=== PATIENT | female | born 1940 | race Caucasian/White ===

== ENCOUNTER 2017-09-27 07:12 | Day surgery (SDC) | payer MEDICARE ==
[~2017-09-27 07:12] MED LIST: Acetaminophen TAB* 325 MG PO PRN; Buffered Lidocaine 0.9% SYRIN* 5 ML/SYR SYRINGE INTRADERM ONE
[2017-09-27] MEDS ORDERED: fentaNYL* 50 MCG/ML 2 ML VIAL (100 MCG VIAL) ONE (09:03)
[2017-09-27] MEDS ORDERED: Midazolam* 1 MG/ML 2 ML VIAL (2 MG) ONE (09:04)
[2017-09-27 10:31] VITALS: BP 105/59
--- NOTE | 2017-09-27 11:00 | OP ---
DATE OF OPERATION: 09/27/2017 - [facility] DATE OF : 1940. SURGEON: Rakan Hancock M.D. PREOPERATIVE DIAGNOSIS: Cataract right eye. POSTOPERATIVE DIAGNOSIS: Cataract right eye. OPERATIVE PROCEDURE: Extracapsular cataract extraction with intraocular lens implant right eye. DESCRIPTION OF PROCEDURE: The patient was brought to the operating room after being given 1/2% Alcaine with epinephrine drops in the preoperative area. The eye was prepped and draped in the usual sterile fashion. Sterile drape and eyelid speculum were placed. Again, topical 1/2% Alcaine with epinephrine was given. A paracentesis incision was made at the 9 o'clock position with the No.75 blade. Clear cornea incision 2.2 x 2.2-mm was created at the 12 o'clock position starting at the anterior limbus using the 2.2-mm keratome. The anterior chamber was irrigated with 0.4 mL of 1% non-preservative intracameral lidocaine and filled with DisCoVisc. A capsulorrhexis was completed using the cystotome and the Utrata forceps. Hydrodissection was performed with balanced salt solution. The lens nucleus was removed with the Phacoemulsification handpiece without incident. Cortex was removed with the irrigation-aspiration handpiece. The capsular bag was re-inflated using DisCoVisc and an [id number] implant was inserted with the shooter. The irrigation-aspiration handpiece was used to remove all residual DisCoVisc. The eye was refilled with balanced salt solution and the wound checked and found to be watertight. Topical Maxitrol drops were given. [id number]/[facility] #: [id number] [facility]
[2017-09-27] MEDS ORDERED: Lidocaine 1% MPF* 2 ML VIAL ONE (11:03)
[2017-09-27] MEDS ORDERED: Phenylephrine 2.5% OPTH.SOL* 2 ML BTL ONE (11:03)
[2017-09-27] MEDS ORDERED: acetaZOLAMIDE TAB* 250 MG ONE (11:03)
[2017-09-27] MEDS ORDERED: Cyclopentolate 1% OPTH.SOL* 2 ML BTL ONE (11:03)
[2017-09-27] MEDS ORDERED: Neomycin/Polymy/Dex OPTH.SUSP* MAXITROL 0.1% 5 ML ONE (11:03)
[2017-09-27] MEDS ORDERED: Ketorolac 0.5% OPHTH (NF) 0.5 % 5 ML BTL ONE (11:03)
[2017-09-27] MEDS ORDERED: Proparacaine 0.5% OPHTH.SOL* 15 ML BTL ONE (11:03)
[2017-09-27] MEDS ORDERED: Povidone Iodine 5% OPTH* 30 ML BTL ONE (11:03)
[2017-09-27] MEDS ORDERED: Lidocaine 2% EPI 1:200000 MPF* 20 ML VIAL ONE (11:03)
== END 2017-09-27 10:02 | disposition home or self-care (01) ==
LOC: OREAST 07:12
PROVIDERS: ATTEND Specialist
DX: H25.811 Combined forms of age-related cataract, right eye (principal); H53.021 Refractive amblyopia, right eye
CPT/HCPCS: A9270-GY; J2250; J3010; V2632

== ENCOUNTER 2017-10-04 06:26 | Day surgery (SDC) | payer MEDICARE ==
[2017-10-04] MEDS ORDERED: Midazolam* 1 MG/ML 2 ML VIAL (2 MG) ONE ×2 (07:10→07:27)
[2017-10-04] MEDS ORDERED: acetaZOLAMIDE TAB* 250 MG ONE (07:12)
[2017-10-04] MEDS ORDERED: Lidocaine 1% MPF* 2 ML VIAL ONE (07:12)
[2017-10-04] MEDS ORDERED: Cyclopentolate 1% OPTH.SOL* 2 ML BTL ONE (07:12)
[2017-10-04] MEDS ORDERED: Ketorolac 0.5% OPHTH (NF) 0.5 % 5 ML BTL ONE (07:13)
[2017-10-04] MEDS ORDERED: Phenylephrine 2.5% OPTH.SOL* 2 ML BTL ONE (07:13)
[2017-10-04] MEDS ORDERED: Lidocaine 2% EPI 1:200000 MPF* 20 ML VIAL ONE (07:13)
[2017-10-04] MEDS ORDERED: Povidone Iodine 5% OPTH* 30 ML BTL ONE (07:13)
[2017-10-04] MEDS ORDERED: Proparacaine 0.5% OPHTH.SOL* 15 ML BTL ONE (07:13)
[2017-10-04] MEDS ORDERED: Neomycin/Polymy/Dex OPTH.SUSP* MAXITROL 0.1% 5 ML ONE (07:13)
[2017-10-04 07:57] VITALS: BP 104/73
--- NOTE | 2017-10-04 12:19 | OP ---
DATE OF OPERATION: 10/04/2017 - [facility] DATE OF : 1940. SURGEON: Rakan Hancock M.D. PREOPERATIVE DIAGNOSIS: Cataract left eye. POSTOPERATIVE DIAGNOSIS: Cataract left eye. OPERATIVE PROCEDURE: Extracapsular cataract extraction with intraocular lens implant left eye. DESCRIPTION OF PROCEDURE: The patient was brought to the operating room after being given 1/2% Alcaine with epinephrine drops in the preoperative area. The eye was prepped and draped in the usual sterile fashion. Sterile drape and eyelid speculum were placed. Again, topical 1/2% Alcaine with epinephrine was given. A paracentesis incision was made at the 3 o'clock position with the No.75 blade. Clear cornea incision 2.2 x 2.2-mm was created at the 6 o'clock position starting at the anterior limbus using the 2.2-mm keratome. The anterior chamber was irrigated with 0.4 mL of 1% non-preservative intracameral lidocaine and filled with DisCoVisc. A capsulorrhexis was completed using the cystotome and the Utrata forceps. Hydrodissection was performed with balanced salt solution. The lens nucleus was removed with the Phacoemulsification handpiece without incident. Cortex was removed with the irrigation-aspiration handpiece. The capsular bag was re-inflated using DisCoVisc and an [id number] 26.5 implant was inserted with the shooter. The irrigation-aspiration handpiece was used to remove all residual DisCoVisc. The eye was refilled with balanced salt solution and the wound checked and found to be watertight. Topical Maxitrol drops were given. [id number]/[facility] #: [id number] [facility]
== END 2017-10-04 07:57 | disposition home or self-care (01) ==
LOC: OREAST 06:26
PROVIDERS: ATTEND Specialist
DX: H25.812 Combined forms of age-related cataract, left eye (principal); H53.021 Refractive amblyopia, right eye
CPT/HCPCS: A9270-GY; J2250; V2632

== ENCOUNTER 2018-07-05 10:49 | Inpatient (IN) | payer MEDICARE ==
--- NOTE | 2018-07-01 23:20 | HP ---
AMENDED REPORT NOW INCLUDES DESIGNATED COSIGNER HISTORY AND PHYSICAL: DATE OF ADMISSION: 07/05/18 DATE OF OFFICE VISIT: 06/22/18 ATTENDING PHYSICIAN: Pam Yen MD * (DICTATED BY ZAINAB GIBBS) REASON FOR HOSPITALIZATION: Right knee osteoarthritis. HISTORY OF PRESENT ILLNESS: The patient is a 77-year-old female who has a longstanding history of right knee pain due to end-stage right knee osteoarthritis. She has had mechanical symptoms giving her 8/10 pain. She has failed conservative treatment and has elected to proceed with surgery. She is scheduled to undergo right knee total arthroplasty on 07/05/[address] Yen. PAST MEDICAL HISTORY: 1. Osteoarthritis. 2. Depression. PAST SURGICAL HISTORY: 1. LASIK surgery for the eye. 2. Tonsil and adenoidectomy. 3. Nasal reconstruction. 4. Bladder lifts. MEDICATION: Omeprazole 40 mg. ALLERGIES: No known drug allergies. FAMILY HISTORY: Sister with cancer. SOCIAL HISTORY: The patient lives with her spouse. She is not working. No tobacco, alcohol, recreational drug use. REVIEW OF SYSTEMS: A complete 14-point review of systems was obtained other than HPI was negative and noncontributory. PHYSICAL EXAMINATION GENERAL: Well-developed, well-nourished 77-year-old female, in no acute distress. Alert and oriented x3. Appropriate mood and affect. HEENT: Head is normocephalic, atraumatic. NECK: Supple with no palpable lymph nodes. LUNGS: Clear to auscultation bilaterally. No wheezes, rales, or rhonchi. CARDIAC: Regular rate and rhythm. S1, S2. No murmurs, rubs, or gallops. ABDOMEN: Soft, tender, nondistended. Positive bowel sounds throughout. MUSCULOSKELETAL: Right lower extremity skin is intact. No abrasions or open wounds. Moderate effusion at the knee joint. There is 10 degrees of valgus deformity, 5 to 130 degrees of flexion at the knee. No varus or valgus instability. Slight tenderness along the medial joint line. Distally no edema or varicosities. No hyperreflexia. No palpable masses or lymph nodes. She has 5/5 equal dorsiflexion and plantar flexion strength. Full sensation to light touch to all nerve distributions and 2+ palpable dorsalis pedis pulse. SKIN: Intact without rashes or lesions. DIAGNOSTIC STUDIES/LAB DATA: Studies; radiographs from 06/01/18 showed severe arthritis with valgus deformity. There is bone on bone contact in the patellofemoral joint. There is newly bone on bone contact in the lateral compartment as well. There is tricompartment joint space narrowing, osteophyte formation and subchondral sclerosis. ASSESSMENT: Right knee osteoarthritis. PLAN: The patient is scheduled to undergo right total knee arthroplasty on by Dr. Yen. She will follow up in the office 10 to 14 days postoperatively. ZAINAB GIBBS [id number]/[facility] #: [id number] MTDEle
[~2018-07-05 10:49] MED LIST changes: -Acetaminophen TAB* 325 MG PO PRN; +Dexamethasone IV* 4 MG/ML 1 ML (4 MG) IV SLOW PU ONE; +Tranexamic Acid 1,000 MG in NS 0.9% 50 ML* (outpatient use) IV SCH
--- OUTSIDE RECORDS SUMMARY | 2018-07-05 10:53 | XMS REPORT ---
:1940 External Reference #:[id number] Author Organization [facility] Address [address] [place] [address] [place] [address] Phone [phone] Care Team Providers Name Role Phone Varghese Bailey MD Primary Care Physician Unavailable Payers Type Date Identification Numbers Payment Provider Subscriber Health Maintenance Effective: Policy Number: [facility] Health Plan Kay Tolbert Jae Organization (O) 04/11/2018 [id number] o PayID: [id number] Attn [facility] Claims Dept [address] [place] [address] Medigap Part B Effective: 07/27/2015 Policy Number: Medicare Kay Rossr [id number] Expires: 05/31/2018 PayID: [id number] [address] [place] [address] Problems Date Description Provider Status Onset: 06/03/2011 Migraine Haseeb Garcia M.D. Active Onset: 06/03/2011 Gastroesophageal reflux disease Haseeb Garcia M.D. Active Onset: 06/03/2011 Pure hypercholesterolemia Haseeb Garcia M.D. Active Onset: 06/01/2018 Localized, primary osteoarthritis Pam Yen M.D. Active Family History Date Family Member(s) Problem(s) Comments General Cancer Father due to CHF () Father due to age 89 () - ? 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 Allergies, Adverse Reactions, Alerts Date Description Reaction Status Severity Comments 03/23/2010 NKDA active Medications Medication Date Status Form Strength Qnty SIG Indications Ordering Provider Omeprazole 03/[address] 40mg Take 1 Capsule By Mouth One Time Daily Famotidine 12/31 Hx Tablets 20mg 1 tablet hs prn - 05/31 Omeprazole 06/[address] 20mg 30cap Take 1 . s Capsule By Radha - Mouth One M.D. 06/14 Time Prilosec 11/[address] 20mg 90cap 1 po qd . Katerine Hernandez M.D. 06/06 Zegerid OTC 06/03 Hx Capsules 20-1100mg 1 capsule . in am Katerine Garcia M.D. 11/14 Famotidine 06/03 Hx Tablets 20mg 60tab 1 tablet Haseeb E. /2010 s hs prn Katerine Garcia M.D. 06/06 Tums 06/03 Hx Chewtabs 500mg 1 chewtab Haseeb EDenia on some Radha - evenings M.D. 06/06 Compro 06/03 Hx Suppository 25mg 1 Haseeb E. suppositor Radha - y prn when M.D. 05/03 Propranolol HCL 06/03 Hx Tablets 10mg 90tab 1 po qd Haseeb E. Katerine Hernandez M.D. 05/03 Prochlorperazine 06/03 Hx Suppository 25mg 6unit insert 1 Haseeb E. s suppositor Radha - y rectally M.D. 05/06 every hours as needed for nausea and vomiting Propranolol HCL 03/23 Hx Tablets 40mg 30tab 1 po qd Haseeb E s Radha, - M.D. 06/[address] 40mg 30cap 1 po qd Unknown / s - 06/03 Zomig Hx Tablets 5mg 20tab Take 09/12 Haseeb E. s Tablet as Radha, - Needed For M.D. 06/06 Vagifem Hx Tablets 10mcg by way of vagina - twice a 05/31 week (with /2018 applicator ) Medications Administered in Office Medication Date Status Form Strength Qnty SIG Indications Ordering Provider Influenza Administered Injection Unknown Virus Vaccine 014 Immunizations CPT Code Status Date Vaccine Lot # [id number] Given 07/27/2015 Influenza Virus Vaccine, Quadrivalent, Split, [id number] Preservative Free [id number] Given 06/06/2013 Flu Vaccine Split Virus Preservative Free For [id number] Indiv 3Yr Older [id number] Given 06/05/2012 Fluzone Vaccine [id number] Given 09/16/2010 Influenza Virus 3Yrs & Over [id number] 14144 Given 09/11/2007 Pneumonia Vaccine 11998 Given 09/11/2006 Tetanus And Diptheria (Td) For Adult Use Preservative Free [id number] Given 09/12/2005 Zoster (Zostavax) Vital Signs Date Vital Result Comment 06/22/2018 Height 68 inches 5'8" Weight 206.00 lb BP Systolic 107 mmHg BP Diastolic 64 mmHg Respiratory Rate 16 /min Pain Level 4 BMI (Body Mass Index) 31.3 kg/m2 06/01/2018 Height 68 inches 5'8" Weight 205.00 lb Heart Rate 92 /min BP Systolic 130 mmHg BP Diastolic 70 mmHg BMI (Body Mass Index) 31.2 kg/m2 05/07/2018 Height 68 inches 5'8" Weight 200.00 lb Heart Rate 78 /min BP Systolic 111 mmHg BP Diastolic 73 mmHg Respiratory Rate 18 /min Body Temperature 98.7 F O2 % BldC Oximetry 98 % BMI (Body Mass Index) 30.4 kg/m2 07/27/2015 Height 68.5 inches 5'8.50" Weight 209.00 lb Heart Rate 74 /min BP Systolic Sitting 110 mmHg BP Diastolic Sitting 78 mmHg Body Temperature 98.1 F Pain Level 4 R hip O2 % BldC Oximetry 98 % BMI (Body Mass Index) 31.3 kg/m2 04/15/2015 Height 68.5 inches 5'8.50" Weight 206.25 lb Heart Rate 88 /min BP Systolic Sitting 108 mmHg BP Diastolic Sitting 64 mmHg Pain Level 3 O2 % BldC Oximetry 95 % BMI (Body Mass Index) 30.9 kg/m2 06/06/2013 Height 68.5 inches 5'8.50" Weight 209.00 lb Heart Rate 74 /min BP Systolic Sitting 108 mmHg BP Diastolic Sitting 76 mmHg BMI (Body Mass Index) 31.3 kg/m2 06/05/2012 Height 68.5 inches 5'8.50" Weight 227.00 lb Heart Rate 68 /min BP Systolic Sitting 110 mmHg BP Diastolic Sitting 74 mmHg BMI (Body Mass Index) 34.0 kg/m2 05/03/2012 Height 68.5 inches 5'8.50" Weight 227.38 lb Heart Rate 64 /min BP Systolic Sitting 112 mmHg BP Diastolic Sitting 70 mmHg BMI (Body Mass Index) 34.1 kg/m2 06/03/2011 Height 68.5 inches 5'8.50" Weight 230.50 lb Heart Rate 76 /min BP Systolic Sitting 114 mmHg BP Diastolic Sitting 68 mmHg BMI (Body Mass Index) 34.5 kg/m2 03/23/2010 Height 68 inches 5'8" Weight 244.00 lb Heart Rate 106 /min BP Systolic Sitting 116 mmHg BP Diastolic Sitting 72 mmHg BMI (Body Mass Index) 37.1 kg/m2 Results Test Date Test Result H/L Range Note Surgical Pathology 12/23/2013 S RUN DATE: <SEE NOTE> Lipid Profile 05/30/2013 Triglycerides 60 mg/dL 40-200 (Trig/Chol/HDL) Cholesterol 273 mg/dL High Less than 200 HDL Cholesterol 78 mg/dL High 40-60 2 Cholesterol/HDL Ratio 3.5 Average 1-4.44 LDL Cholesterol 183.0 High Less Than 100 3 Vitamin D, 25 Hydroxy 05/07/2012 25-Hydroxy Vitamin D2 <4.0 ng/mL () 25-Hydroxy Vitamin D3 40 ng/mL () 25-Hydroxy Vitamin D Total 40 ng/mL () 4 Lipid Profile (Trig/Chol/HDL) 05/07/2012 Triglyceride 51 mg/dL 40-200 Cholesterol 213 mg/dL High Less Than 200 5 High Density Lipoprotein 67 mg/dL High 40-60 6 Cholesterol/HDL Ratio 3.18 AVERAGE 1-4.44 Low Density Lipoprotein 136 mg/dL High Less Than 100 7 Comp Metabolic Panel 05/07/2012 Sodium 141 mmol/L 135-145 Potassium 4.3 mmol/L 3.5-5.0 Chloride 105 mmol/L 101-111 Co2 (Carbon Dioxide) 29.0 mmol/L 22-32 Anion Gap 7.0 mmol/L 2-11 8 Glucose 90 mg/dL 70-100 BUN 16 mg/dL 6-24 Creatinine 0.8 mg/dL 0.50-1.40 One Over Creatinine 1.25 BUN/Creatinine Ratio 20.0 8-20 Calcium 9.9 mg/dL 8.1-9.9 Total Protein 7.0 GM/DL 6.2-8.1 Albumin 4.0 GM/DL 3.2-5.2 Globulin 3.0 GM/DL 2-4 Albumin/Globulin Ratio 1.3 1-3 Bilirubin Total 0.8 mg/dL 0.4-1.5 9 Alkaline Phosphatase 57 U/L 30-110 Alt (SGPT) 20 U/L 14-54 Ast (Sgot) 25 U/L 12-42 eGFR Non- 71.1 > 60 eGFR 91.5 > 60 10 CBC Auto Diff 05/07/2012 White Blood Count 5.0 CUMM 4.8-10.8 Red Cell Count 4.45 CUMM 4.2-5.4 Hemoglobin 13.6 g/dL 12.0-16.0 Hematocrit 41 % 35-47 Mean Corpuscular Volume 91 um3 79-97 Mean Corpuscular Hemoglob 31 pg 27-31 Mean Corpuscular HGB Cone 34 g/dL 32-36 Redcell Distribution WDTH 15 % 10.5-15 Platelet Count 172 CUMM 150-450 Mean Platelet Volume 10.6 um3 High 7.4-10.4 Gran % 50.9 % 38-83 Lymph % 36.7 % 20-45 Mononuclear % 8.7 % 1-9 Eosinophil % 2.5 % 0-6 Basophil % 1.2 % 0-2 Abs Lymphs 1.8 1.0-4.8 Abs Mononuclear 0.4 0-0.8 Absolute Neutrophil Count 2.5 1.5-7.7 Abs Eosinophils 0.1 0-0.6 Abs Basophils 0.1 0-0.2 Vitamin D, 25 Hydroxy 06/04/2010 25-Hydroxy Vitamin D2 <4.0 ng/mL () 25-Hydroxy Vitamin D3 43 ng/mL () 25-Hydroxy Vitamin D Total 43 ng/mL () 11 CBC With Electronic Diff 06/04/2010 White Blood Count 5.8 CUMM 4.8-10.8 Red Cell Count 4.48 CUMM 4.2-5.4 Hemoglobin 13.2 g/dL 12.0-16.0 Hematocrit 40 % 35-47 Mean Corpuscular Volume 89 um3 79-97 Mean Corpuscular Hemoglob 30 pg 27-31 Mean Corpuscular HGB Cone 33 g/dL 32-36 Redcell Distribution WDTH 16 % High 10.5-15 Platelet Count 255 CUMM 150-450 Mean Platelet Volume 9.5 um3 7.4-10.4 Gran % 53.6 % 38-83 Lymph % 31.9 % 25-47 Mononuclear % 10.7 % High 1-9 Eosinophil % 2.8 % 0-6 Basophil % 1.0 % 0-2 Abs Lymphs 1.8 1.0-4.8 Abs Mononuclear 0.6 0-0.8 Absolute Neutrophil Count 3.1 1.5-7.7 Abs Eosinophils 0.2 0-0.6 Abs Basophils 0.1 0-0.2 Lipid Profile (Trig/Chol/HDL) 06/04/2010 Triglyceride 83 mg/dL 40-200 Cholesterol 234 mg/dL High Less Than 200 12 High Density Lipoprotein 70 mg/dL High 40-60 13 Cholesterol/HDL Ratio 3.34 AVERAGE 1-4.44 Low Density Lipoprotein 147 mg/dL High Less Than 100 14 Comp Metabolic Panel 06/04/2010 Sodium 139 mmol/L 135-145 Potassium 4.7 mmol/L 3.5-5.0 Chloride 104 mmol/L 101-111 Co2 (Carbon Dioxide) 27.0 mmol/L 22-32 Anion Gap 8.0 mmol/L 2-11 15 Glucose 99 mg/dL 70-100 16 BUN 15 mg/dL 6-24 Creatinine 0.90 mg/dL 0.50-1.40 One Over Creatinine 1.10 BUN/Creatinine Ratio 16.7 8-20 Calcium 9.6 mg/dL 8.1-9.9 Total Protein 7.3 GM/DL 6.2-8.1 Albumin 4.1 GM/DL 3.2-5.2 Globulin 3.2 GM/DL 2-4 Albumin/Globulin Ratio 1.3 1-3 Bilirubin Total 0.7 mg/dL 0.4-1.5 17 Alkaline Phosphatase 53 U/L 30-110 Alt (SGPT) 15 U/L 14-54 Ast (Sgot) 23 U/L 12-42 eGFR Non- 66.4 > 60 eGFR 80.3 > [address] Garcia's Lab Panel 06/04/2010 TSH 1.69 MIU/ML 0.34-5.60 1 RUN DATE: 12/25/13 [facility] LAB LIVE PAGE 1 RUN TIME: [address] [place] [id number] Specimen Inquiry Name: KAY BURLESON : [address]: Petr Dodson MD Acct: [id number] Unit: [id number] AGE: 73 Location: ENDO Re12/23/13 SEX: F Status: REG REF SPEC: [id number] ELISEO: 12/23/13- SUBM DR: Petr Dodson MD REQ: [id number] RECD: 12/23/13292 STATUS: MOHINI MOHAMUD DR: Haseeb Garcia III, MD _ ORDERED: LEVEL IV/2 FINAL DIAGNOSIS 1. Colon, right, biopsies: Collagenous colitis (see comment). 2. Colon, sigmoid, biopsies: Collagenous colitis (see comment). COMMENTS: The biopsies demonstrate increased lamina propria lymphoplasmacytic infiltrate with conspicuous and significant thickening of the subepithelial basement membrane with fragmentation and globular deposition of basement membrane material. In addition there is increased superficial lymphocytic and eosinophilic infiltration with epithelial cell damage and loss of goblet cells. These findings are characteristic of collagenous colitis. CLINICAL HISTORY Diarrhea (bowel change ??) for screening colonoscopy. POST-OPERATIVE DIAGNOSIS Abdomen negative, rectal negative. Screening colonoscopy to cecum very windy throughout, all negative - biopsy x2. Conclusion: 1. Normal colon, 2. Diarrhea - biopsy pending CONTINUED ON NEXT PAGE * ML=Testing performed at Main Lab DEPARTMENT OF PATHOLOGY, [facility] [employer] [place], [place] [address] Anjum Mcconnell M.D. Director [facility] Permit #[id number] RUN DATE: 12/25/13 [facility] LAB LIVE PAGE 2 RUN TIME: 1303 [facility] [address], [place], [place] [address] Specimen Inquiry Patient: KAY BURLESON [id number] (Continued) GROSS DESCRIPTION (Continued) GROSS DESCRIPTION 1. The specimen is received in formalin labeled Kay Burleson, Right Colon Biopsies and consists of two, gill, irregular, soft tissue fragments averaging 0.3 x 0.2 x 0.2 cm. Submitted entirely, one cassette. 2. The specimen is received in formalin labeled Kay Burleson, Sigmoid Colon Biopsies and consists of two, gill, irregular, soft tissue fragments measuring 0.6 x 0.2 x 0.1 cm. and 0.9 x 0.2 x 0.1 cm. Submitted entirely, one cassette. Signed (signature on file) Anjum Mcconnell MD 1303 END OF REPORT * ML=Testing performed at Main Lab DEPARTMENT OF PATHOLOGY, [address] [place] [address] Anjum Mcconnell M.D. Director [facility] Permit #[id number] 2 HDL Interpretation: Undesirable: High Risk: Less than 40 mg/dL Desirable: Low Risk: Greater than 60 mg/dL 3 LDL Interpretation: Low Risk Optimal Level: LDL Less than 100 mg/dL Near or Above Optimal: LDL 100-129 mg/dL Borderline High Risk: LDL 130-159 mg/dL High Risk: LDL 160-189 mg/dL Very High Risk: LDL Greater than 189 mg/dL 4 -- REFERENCE VALUE -- 25-HYDROXY D TOTAL (D2+D3) Optimum levels in the normal population are 25-80 Test Performed by: [facility] [address] [address] [employer] Polisher: Tommy Herrera III, M.D. 5 CHOLESTEROL INTERPRETATION: Desirable: Less than 200 MG/DL Borderline-High Risk: 200-239 MG/DL High-Risk: 240 MG/DL and over 6 HDL INTERPRETATION: Undesirable: High Risk: Less than 40 MG/DL Desirable: Low Risk: Greater than 60 MG/DL 7 LDL INTERPRETATION: Low Risk Optimal Level: LDL Less than 100 MG/DL Near or Above Optimal: LDL 100-129 MG/DL Borderline High Risk: LDL 130-159 MG/DL High Risk: LDL 160-189 MG/DL Very High Risk: LDL Greater than 189 MG/DL 8 Anion gap measurement may be of limited value in the presence of any alkalosis, especially in a combined acid base disorder. . 9 A metabolite of Naproxen, O-desmethylnaproxen, has been shown to interfere with the Jendrassik-Stonefort method for measuring total bilirubin. Samples from patients who have taken Naproxen have shown spurious elevation in total bilirubin levels. 10 Because ethnic data is not always readily available, this report includes an eGFR for both -Americans and non- Americans. The National Kidney Disease Education Program (NKDEP) does not endorse the use of the MDRD equation for patients that are not between the ages of 18 and 70, are , have extremes of body size, muscle mass, or nutritional status, or are non- or non-. According to the National Kidney Foundation, irrespective of diagnosis, the stage of the disease is based on the level of kidney function: Stage Description GFR(mL/min/1.73 m(2)) 1 Kidney damage with normal or decreased GFR 90 2 Kidney damage with mild decrease in GFR 60-89 3 Moderate decrease in GFR 30-59 4 Severe decrease in GFR 15-29 5 Kidney failure <15 (or dialysis) 11 -- REFERENCE VALUE -- 25-HYDROXY D TOTAL (D2+D3) Optimum levels in the normal population are 25-80 Test Performed by: [facility] Dpt of Lab Med and Pathology [address] [place] [address] [employer]isher: Tommy Herrera III, M.D. 12 CHOLESTEROL INTERPRETATION: Desirable: Less than 200 MG/DL Borderline-High Risk: 200-239 MG/DL High-Risk: 240 MG/DL and over 13 HDL INTERPRETATION: Undesirable: High Risk: Less than 40 MG/DL Desirable: Low Risk: Greater than 60 MG/DL 14 LDL INTERPRETATION: Low Risk Optimal Level: LDL Less than 100 MG/DL Near or Above Optimal: LDL 100-129 MG/DL Borderline High Risk: LDL 130-159 MG/DL High Risk: LDL 160-189 MG/DL Very High Risk: LDL Greater than 189 MG/DL 15 Anion gap measurement may be of limited value in the presence of any alkalosis, especially in a combined acid base disorder. . 16 Note change in reference range as of 05/01/08. The change was based on recommendations from the [place] [employer]. 17 A metabolite of Naproxen, O-desmethylnaproxen, has been shown to interfere with the Jendrassik-Stonefort method for measuring total bilirubin. Samples from patients who have taken Naproxen have shown spurious elevation in total bilirubin levels. 18 Because ethnic data is not always readily available, this report includes an eGFR for both -Americans and non- Americans. The National Kidney Disease Education Program (NKDEP) does not endorse the use of the MDRD equation for patients that are not between the ages of 18 and 70, are , have extremes of body size, muscle mass, or nutritional status, or are non- or non-. According to the National Kidney Foundation, irrespective of diagnosis, the stage of the disease is based on the level of kidney function: Stage Description GFR(mL/min/1.73 m(2)) 1 Kidney damage with normal or decreased GFR 90 2 Kidney damage with mild decrease in GFR 60-89 3 Moderate decrease in GFR 30-59 4 Severe decrease in GFR 15-29 5 Kidney failure <15 (or dialysis) Procedures Date CPT Code Description Status 06/05/2014 Mammogram Completed 06/04/2013 Mammogram Completed 05/21/2012 Bone Mineral Density Test Completed 05/21/2012 Mammogram Completed Encounters Type Date Location Provider CPT E/M Dx Office Visit 06/01/2018 [facility] Pam Yen M.D. 24624 M25.561 1:30p [facility] M25.461 M17.11 M21.061 Office Visit 05/07/2018 3:00p [facility] [place] [address] K21.0 Z79.899 Office Visit 07/27/2015 10:40a [facility] Internal Medicine Haseeb Garcia, [address] M25.551 - Roberto Carlos Arango Z23 Office Visit 04/15/2015 11:20a [facility] Internal Medicine Haseeb Garcia [address] 719.44 - Roberto Carlos Arango 272.0 V77.1 729.5 Office Visit 06/05/2012 1:20p [facility] [address] V76.10 - Roberto Carlos Arango V04.81 530.81 Office Visit 06/03/2011 11:40a DO Not Use [facility] AT [facility], [address] 346.90 [facility].Afshan 530.81 272.0 Office Visit 03/23/2010 1:20p DO Not Use [facility] AT [facility], [address] 346.90 [facility].DDenia 530.81 Plan of Care Future Appointment(s):07/05/2018 12:30 pm - Steven Archuleta PA-C at [facility]..07/05/2018 12:30 pm - ZAINAB Barriga at [facility]07/05/2018 12:30 pm - Pam Yen M.D. at [facility]..06/22/2018 - Pam Yen M.D.M25.561 Pain in right kneeFollow up:10-14 days gpeyveV75.11 Unilateral primary osteoarthritis, right knee
--- OUTSIDE RECORDS SUMMARY | 2018-07-05 10:53 | XMS REPORT ---
:1940 External Reference #:[id number] Author Organization [facility] Address [address] [place] [address] Phone [phone] Care Team Providers Name Role Phone Formerly [facility] Primary Care Physician Unavailable Payers Type Date Identification Numbers Payment Provider Subscriber Medicare Primary Effective: Policy Number: [place] Maegan Burleson 2007 [id number] PayID: [id number] [address] [address] [place] [address] Commercial Expires: 2015 Policy Number: [id number] [facility] Maegan Burleson PayID: [id number] [address] [place] [address] Commercial Effective: 2015 Policy Number: [facility] Maegan Rossoer [id number] (alpha) PayID: [id number] [address] [place] [address] Problems Description No Information Family History Date Family Member(s) Problem(s) Comments Father due to Congestive Heart Failure () Mother due to Alzheimer's Disease () Mother due to Parkinsons () First Son A&W First Daughter A&W First Sister A&W First Sister Ovarian Cancer Survivor!! Second Sister A&W Paternal Grandfather due to Unknown Causes () Paternal Grandmother due to Unknown Causes () Maternal Grandfather due to Unknown Causes () Maternal Grandmother due to Unknown Causes () Social History Type Date Description Comments Education Highest level completed, 2 years of college Marital Status Lives With Spouse Cigarette Use Never Smoked Cigarettes ETOH Use Denies alcohol use Recreational Drug Use Denies Drug Use Smoking Patient has never smoked Daily Caffeine Does not consume caffeine Exercise Type/Frequency Exercises sporadically Seat Belt/Car Seat Always uses seat belt Currently Active Patient is currently not sexually active STD's No STD History Allergies, Adverse Reactions, Alerts Date Description Reaction Status Severity Comments 01/28/2015 NKDA active Medications Medication Date Status Form Strength Qnty SIG Indications Ordering Provider [facility] 12/12 Active Tablets 10mcg 30tab 1 per s vagina 2x Peace, per week at [facility] at bedtime Trimo-Patel 12/07 Active Gel 0.025% 113.4 use as 00gm directed Peace, once week CNM Prochlorperazine Active Unknown / Pepcid Complete Active Chewtabs Unknown / Estradiol 12/20 Hx Cream 0.1mg/GM 42.50 insert 1gm 0gm vaginally Julian, - twice a MD 01/11 week Vagifem 09/14 Hx Tablets 10mcg 24tab insert one s tablet Julian, - vaginally 12/12 at bed two times a week Yuvafem 09/13 Hx Tablets 10mcg 30tab 1 per s vagina 2x Julian, - per week at MD 09/14 at bed Lotrisone 03/08 Hx Cream 1-0.05% 45uni apply to ts affected Julian, - area(s) two 07/13 times a day for 14 days Clotrimazole/Betam 03/08 Hx Cream 1-0.05% 45gm apply to area two Julian, Dipropionate - times a day 07/13 for 2 weeks Premarin 05/25 Hx Cream 0.625mg/G 30gm use 1 gm Elmo A. M per vagina Gelber, - and apply a M.D. 08/02 amount externally 2 x weekly Vagifem 05/05 Hx Tablets 10mcg 24tab one tab per s vagina Julian, - every night 05/25 at bed 2x/week Omeprazole Hx Unknown /0000 - 11/30 Vagifem 00/00 Hx Unknown /0000 - 09/13 Medications Administered in Office Medication Date Status Form Strength Qnty SIG Indications Ordering Provider PT SCRN Tbco Administered Injection Suzanne Id as Non User 018 MD Eliel PT SCRN Tbco Administered Injection Suzanne Id as Non User 018 MD Eliel PT SCRN Tbco Administered Injection Suzanne Id as Non User 018 MD Eliel PT SCRN Tbco Administered Injection Suzanne Id as Non User 018 MD Eliel Vital Signs Date Vital Result Comment 06/04/2018 BP Systolic 106 mmHg BP Diastolic 72 mmHg Height 67.5 inches 5'7.50" Weight 204.00 lb BMI (Body Mass Index) 31.5 kg/m2 2 Parity 2 01/16/2018 BP Systolic 98 mmHg BP Diastolic 62 mmHg Height 67.5 inches 5'7.50" Weight 205.00 lb BMI (Body Mass Index) 31.6 kg/m2 2 Parity 2 12/26/2017 BP Systolic 110 mmHg BP Diastolic 70 mmHg Height 67.5 inches 5'7.50" Weight 206.00 lb BMI (Body Mass Index) 31.8 kg/m2 Last Menstrual Period [id number] 2 Parity 2 12/12/2017 BP Systolic 98 mmHg BP Diastolic 68 mmHg Height 67.5 inches 5'7.50" Weight 208.00 lb BMI (Body Mass Index) 32.1 kg/m2 Last Menstrual Period [id number] 2 Parity 2 08/30/2017 BP Systolic 98 mmHg BP Diastolic 62 mmHg Height 67.5 inches 5'7.50" Weight 203.00 lb BMI (Body Mass Index) 31.3 kg/m2 2 Parity 2 05/25/2017 BP Systolic 106 mmHg BP Diastolic 68 mmHg Height 67.5 inches 5'7.50" Weight 199.00 lb BMI (Body Mass Index) 30.7 kg/m2 Last Menstrual Period [id number] 2 Parity 2 02/13/2017 BP Systolic 130 mmHg BP Diastolic 80 mmHg BP Systolic Recheck 116 mmHg BP Diastolic Recheck 70 mmHg Height 67.5 inches 5'7.50" Weight 206.00 lb BMI (Body Mass Index) 31.8 kg/m2 Last Menstrual Period [id number] 2 Parity 2 02/07/2017 BP Systolic 116 mmHg BP Diastolic 70 mmHg Height 67.5 inches 5'7.50" Weight 205.00 lb BMI (Body Mass Index) 31.6 kg/m2 Last Menstrual Period [id number] 2 Parity 2 10/26/2016 BP Systolic 110 mmHg BP Diastolic 78 mmHg Height 67.5 inches 5'7.50" Weight 205.00 lb BMI (Body Mass Index) 31.6 kg/m2 Last Menstrual Period [id number] 2 Parity 2 07/13/2016 BP Systolic 108 mmHg BP Diastolic 74 mmHg Height 67.5 inches 5'7.50" Weight 204.00 lb BMI (Body Mass Index) 31.5 kg/m2 Last Menstrual Period [id number] 2 Parity 2 03/08/2016 BP Systolic 116 mmHg BP Diastolic 78 mmHg Height 67.5 inches 5'7.50" Weight 205.00 lb BMI (Body Mass Index) 31.6 kg/m2 Last Menstrual Period [id number] 2 Parity 2 2015 BP Systolic 118 mmHg BP Diastolic 74 mmHg Height 67.5 inches 5'7.50" Weight 208.00 lb BMI (Body Mass Index) 32.1 kg/m2 Last Menstrual Period [id number] 2 Parity 2 09/01/2015 BP Systolic 104 mmHg BP Diastolic 76 mmHg Height 67.5 inches 5'7.50" Weight 214.00 lb BMI (Body Mass Index) 33.0 kg/m2 Last Menstrual Period 7357577 2 Parity 2 06/03/2015 BP Systolic 116 mmHg BP Diastolic 72 mmHg Height 67.5 inches 5'7.50" Weight 208.00 lb BMI (Body Mass Index) 32.1 kg/m2 Last Menstrual Period [id number] 2 Parity 2 05/05/2015 BP Systolic 124 mmHg BP Diastolic 86 mmHg Height 67.5 inches 5'7.50" Weight 208.00 lb BMI (Body Mass Index) 32.1 kg/m2 01/28/2015 BP Systolic 112 mmHg BP Diastolic 74 mmHg Height 67.5 inches 5'7.50" Weight 205.00 lb BMI (Body Mass Index) 31.6 kg/m2 Last Menstrual Period [id number] 2 Parity 2 Results Description No Information Procedures Date CPT Code Description Status 04/11/2016 Mammogram Completed 09/11/2013 Colonoscopy Completed Encounters Type Date Location Provider CPT E/M Dx Office Visit 06/04/2018 2:15p [place] [address] N81.11 Office Visit 01/16/2018 1:15p [place] [address] N81.11 Office Visit 12/26/2017 12:00p [place] [address] N81.11 Office Visit 12/12/2017 11:30a [place] [address] N81.11 Office Visit 08/30/2017 10:30a [place] [address] N81.11 Office Visit 05/25/2017 11:00a [place] [address] N81.11 Office Visit 02/07/2017 1:00p [place] [address] N81.11 Office Visit 10/26/2016 1:00p [place] [address] N81.11 Office Visit 07/13/2016 2:15p [place] [address] N81.11 Office Visit 03/08/2016 11:00a [place] [address] N81.11 Office Visit 2015 11:00a [place] [address] N81.11 Office Visit 09/01/2015 10:40a [place] [address] N81.11 Office Visit 06/03/2015 3:00p [place] [address] N81.11 Office Visit 05/05/2015 2:30p [place] [address] 618.01 Office Visit 01/28/2015 10:00a [place] [address] 618.01 625.6 Plan of Care Future Appointment(s):08/06/2018 10:40 am - Suzanne Julian MD at [facility]806/04/2018 - Suzanne Julian MDN81.11 Cystocele, midlineComments:PT to continue with Yuvafem while using pessary. Pessary removed and cleaned and reinserted. Pt to consider self pessary care.
[2018-07-05] MEDS ORDERED: fentaNYL* 50 MCG/ML 2 ML VIAL (100 MCG VIAL) ONE ×2 (11:04→13:16)
[2018-07-05] MEDS ORDERED: Midazolam* 1 MG/ML 5 ML VIAL (5 MG) ONE (11:04)
[2018-07-05] MEDS ORDERED: Propofol* 10 MG/ML 20 ML BTL IV PUSH ONE (11:05)
[2018-07-05] MEDS ORDERED: Bupivacaine 0.5% SDV PF* 30ML VIAL ONE ×2 (11:05→12:32)
[2018-07-05] MEDS ORDERED: Ondansetron INJ* 2 MG/ML VIAL ONE ×3 (11:05→15:19)
[2018-07-05] MEDS ORDERED: Dexamethasone IV* 4 MG/ML 1 ML (4 MG) ONE (11:29)
[2018-07-05] MEDS ORDERED: ceFAZolin 2 GM PREMIX in ORs 2 GM/50 ML BAG IVPB ONE (11:29)
[2018-07-05] MEDS ORDERED: Tranexamic Acid 1,000 MG/10 ML SDV IV ONE (11:31)
[2018-07-05] MEDS ORDERED: celeCOXIB CAP* 200 MG PO ONE (11:45)
[2018-07-05] MEDS ORDERED: Gabapentin CAP(*) 300 MG PO ONE (11:45)
[2018-07-05] MEDS ORDERED: celeCOXIB CAP* 100 MG ONE (11:59)
[2018-07-05] MEDS ORDERED: Gabapentin CAP(*) 300 MG ONE (12:00)
[2018-07-05] MEDS ORDERED: Scopolamine 1.5 mg* PATCH ONE (12:00)
[2018-07-05] MEDS ORDERED: Scopolamine 1.5 mg* PATCH TRANSDERM SCH (12:00)
[2018-07-05] MEDS ORDERED: ROPIVACAINE 5 MG/ML 30 ML BTL (0.5%) ONE (12:20)
[2018-07-05] MEDS ORDERED: KETAMINE HCL* 50 MG/ML 10 ML VIAL ONE (13:16)
[2018-07-05] MEDS ORDERED: Glycopyrrolate IV* 0.2 MG/ML 1 ML VIAL ONE (13:36)
[2018-07-05] MEDS ORDERED: Naloxone* 0.4 MG/ML 1 ML VIAL IV PRN (13:39)
[2018-07-05] MEDS ORDERED: fentaNYL* 50 MCG/ML 2 ML VIAL (100 MCG VIAL) IV PRN (13:39)
[2018-07-05] MEDS ORDERED: HYDROmorphone INJ1* 1 MG/ML SYRINGE IV PRN (13:39)
[2018-07-05] MEDS ORDERED: DiMENhydriNATE IV* 50 MG/ML VIAL IV PUSH PRN (13:39)
[2018-07-05] MEDS ORDERED: Ondansetron INJ* 2 MG/ML VIAL IV PRN ×2 (13:39→14:47)
[2018-07-05] MEDS ORDERED: oxyCODONE TAB* 5 MG TAB PO PRN (14:47)
[2018-07-05] MEDS ORDERED: Bisacodyl SUPP* 10 MG SUPP PR PRN (14:47)
[2018-07-05] MEDS ORDERED: Magnesium Hydroxide LIQ* 30 ML UDC PO PRN (14:47)
[2018-07-05] MEDS ORDERED: oxyCODONE/Acetamin 5/325 MG* TAB PO PRN (14:47)
[2018-07-05] MEDS ORDERED: diPHENhydraMINE IV* 50 MG/ML 1 ml VIAL (BENADRYL) IV PRN (14:47)
[2018-07-05] MEDS ORDERED: Morphine INJ* 2 MG/ML 1 ML SYRINGE (TWO MG - NEW SYRINGE VERSION) IV PRN (14:47)
[2018-07-05] MEDS ORDERED: Warfarin TAB(*) 6 MG PO ONE (17:00)
--- NOTE | 2018-07-05 17:06 | RAD ---
INDICATION: Status post total right knee replacement surgery. TECHNIQUE: 2 views of the right knee were obtained. FINDINGS: The patient is status post total right knee replacement surgery. The bones and prostheses are in normal alignment. There is air present within the joint space consistent with the patient's recent surgery. IMPRESSION: STATUS POST TOTAL RIGHT KNEE REPLACEMENT SURGERY.
[2018-07-05] MEDS: ceFAZolin 1 GM in Dextrose (*) 1 GM/50 ML BAG IVPB SCH (22:49)
[2018-07-05] MEDS: Magnesium Hydroxide LIQ* 30 ML UDC PO SCH (23:32)
[2018-07-05] MEDS: Docusate CAP* 100 MG PO SCH (23:32)
[2018-07-06] MEDS: oxyCODONE/Acetamin 5/325 MG* TAB PO PRN ×4 (03:31→22:42)
[2018-07-06 05:21] LABS: Hematocrit 35 % (35-47); Hemoglobin 11.7 g/dl (12.0-16.0); Mean Platelet Volume 9.3 um3 (7.4-10.4); Platelet Count 172 10^3/ul (150-450)
[2018-07-06 05:26] LABS: INR 0.98 (0.77-1.02)
[2018-07-06] MEDS: ceFAZolin 1 GM in Dextrose (*) 1 GM/50 ML BAG IVPB SCH ×2 (06:42→15:02)
[2018-07-06] MEDS: Omeprazole CAP* 20 MG PO SCH (07:42)
[2018-07-06] MEDS: Vitamin THERAPEUTIC TAB PO SCH (07:42)
[2018-07-06] MEDS: Docusate CAP* 100 MG PO SCH ×2 (07:42→22:35)
[2018-07-06] MEDS: Magnesium Hydroxide LIQ* 30 ML UDC PO SCH ×2 (07:43→22:36)
--- NOTE | 2018-07-06 09:17 | OP ---
DATE OF OPERATION: 07/05/18 - ROOM #346 DATE OF : 44 SURGEON: Pam Yen MD. DIRECTOR OF OCCUPATIONAL HEALTH: ZAINAB Gonzales. Ms. Horvath did help throughout the procedure with preparation of the leg, wound retraction, and manipulation of the knee. ANESTHESIOLOGIST: Dr. Farnsworth. ANESTHESIA: Spinal. PRE-OP DIAGNOSIS: Severe end-stage degenerative osteoarthritis of the right knee joint with valgus deformities. POST-OP DIAGNOSIS: Severe end-stage degenerative osteoarthritis of the right knee joint with valgus deformities. OPERATIVE PROCEDURE: Right total knee arthroplasty. TOURNIQUET TIME: 42 minutes. COMPLICATIONS: None. ESTIMATED BLOOD LOSS: 200 cc. SPECIMENS: Bone and cartilage from the right knee joint sent to Pathology. HARDWARE USED: This is cemented Su[employer] total knee arthroplasty hardware. Two packages of Simplex bone cement. For the femur, a size 6 right posterior stabilized Legion narrow femoral component. For the tibia, a size 5 Carley II right tibial base plate. For the insert, a 9-mm posterior stabilized articular insert size 5-6, and for the patella, a 35-mm 3 peg all- poly patella. BRIEF HISTORY/INDICATIONS: Ms. Rowe is a 77-year-old female with years of increasingly severe right knee pain and valgus deformity. Her radiographs showed [id number] arthritis. She failed conservative treatment with anti- inflammatories, pain medications, intraarticular injection, and physical therapy. Due to continued pain and decreased quality of life, she elected to undergo right total knee arthroplasty. Informed consent was obtained from the patient. She understood the risks of surgery included, but were not limited to, bleeding, infection, damage to nearby structures, continued pain, need for further surgery, intraoperative fracture, nerve palsy, hardware failure or loosening, knee stiffness, loss of motion, stroke, heart attack, blood clot, and . She wished to proceed. INTRAOPERATIVE FINDINGS: Intraoperatively, the patient was noted to have severe end-stage arthritis with complete loss of cartilage in all 3 compartments. She had significant valgus deformity of 12 degrees at the start of the case. DESCRIPTION OF PROCEDURE: Ms. Rowe was identified in the preanesthesia unit. Her right lower extremity was marked as the correct operative site. Informed consent was signed and placed in the chart. The patient was taken to the operating room and placed under spinal anesthesia. A Zamudio catheter was placed. Tourniquet was placed on the right thigh. Right lower extremity was prepped and draped in the usual sterile fashion. Preop time-out was made to correctly identify the patient, side and site. Appropriate perioperative antibiotics were given within 1 hour of incision. Tourniquet was inflated and total tourniquet time for this procedure was 42 minutes. A straight midline incision was made with a 10 blade and carried down to the extensor mechanism. A new 10 blade was used to make a standard medial parapatellar arthrotomy. The patella was subluxed laterally. Electrocautery was used to subperiosteally elevate soft tissue off the superomedial tibia to the mid sagittal plane. The knee was flexed up. The anterior horn of the lateral meniscus and ACL were sharply released. A drill was used to enter the distal femur. Intramedullary distal femoral cutting guide was pinned on the distal femur. The oscillating saw was used to make the distal femoral cut. Lateral femoral condylar hypoplasia was noted and accounted for. Next, the external rotation guide was pinned on the distal femur. Distal femur was sized to a size 6. Size 6 multi-cutting jig was pinned on the distal femur. Oscillating saw was used to make the appropriate chamfer cuts. Next, the PCL was completely released. The tibia was subluxed anteriorly. Extramedullary tibial cutting guide was pinned on the proximal tibia. Oscillating saw was used to make the proximal tibial cut perpendicular to the mechanical axis of the tibia. The bone was carefully removed. The knee was brought out into full extension. There was some lateral ligamentous tightness. Electrocautery was used to elevate the posterolateral capsule of the tibia. Any osteophytes were carefully removed. Medial and lateral ligamentous balancing was much improved. The flexion and extension gaps were well balanced. The knee had full extension with the spacer block in place. The knee was flexed up. The lamina finishing manager was placed both medially and laterally. Any remaining meniscus was carefully removed using electrocautery. Curved osteotome was used to remove any posterior osteophytes. Tibial tray and drop rafita were placed and once again confirmed a satisfactory tibial cut. A right size 6 narrow femoral trial was impacted on to the distal femur and had excellent fit. The box for the posterior stabilized implant was prepared using a reamer and box cut osteotome. Size 5 tibial tray trial with a 9-mm insert trial was placed and the knee was taken through range of motion. The knee had full extension to 130 degrees of flexion. There was satisfactory patellofemoral tracking. The patella was everted. 9 mm of patellar bone and cartilage were carefully removed with an oscillating saw. The patella was sized to a size 35. Three peg holes were drilled with a size 35 guide. A 35 trial patella was placed and the knee was taken through a range of motion. There was satisfactory patellofemoral tracking. All trials were carefully removed. The tibia was subluxed anteriorly and sized to a size 5. Proximal tibia was prepared using a size 5 keel punch. All bony cut surfaces were copiously irrigated and dried. Final implants were cemented into place starting with the tibia followed by the femur and last the patella. A 9-mm insert trial was placed while the knee was brought out into full extension. Tourniquet was turned down at 42 minutes. Electro-cautery was used to obtain meticulous hemostasis. The knee was copiously irrigated with sterile saline. Once the cement had fully cured, the insert trial was removed. Any excess cement was removed from around the capsule and implant. Final insert chosen was a 9-mm posterior stabilized articular insert, size 5/6. This was locked into position on the tibial tray. Stability of the insert was checked and rechecked. The knee was once again copiously irrigated with sterile saline. The extensor mechanism was closed using interrupted #1 Vicryl. The rest of the incision was closed in a layered fashion using 0 and 2-0 Vicryl. Skin was closed using running 3-0 nylon suture. Sterile Xeroform, 4x4's, and Webril were used to cover the incision. Colton wrap and cold pack were placed over this. The patient' s anesthesia was reversed without difficulty. She was taken to the PACU in stable condition. Intended weightbearing will be weightbearing as tolerated. Intended DVT prophylaxis will be Coumadin with a Lovenox bridge. [id number]/[facility] #: [id number] MTDD
--- NOTE | 2018-07-06 12:36 | PN ---
Progress Note - Progress Note Date of Service: 07/06/18 SOAP: Subjective: []Patient seen OOB in chair. She had a brief episode of dizziness while up to BR this morning, mildly hypotensive but now resolved and asymptomatic. Denies SOB, chest pain or palpitations. Objective: [] Vital Signs Temp 98.2 F 07/06/18 11:18 Pulse 61 07/06/18 11:18 Resp 18 07/06/18 11:30 BP 88/50 07/06/18 11:18 Pulse Ox 100 07/06/18 11:18 Intake & Output 07/05/18 07/06/18 07/06/18 18:59 06:59 18:59 Intake Total 1700 1480 360 Output Total 200 1850 125 Balance 1500 -370 235 Weight 205 lb Intake: IV Fluids 1700 lr 1700 Oral 1480 360 Output: Urine 200 125 Zamudio 1850 Other: # Bowel Movements 0 Laboratory Results - last 24 hr 07/06/18 07/06/18 07/06/18 04:52 04:52 04:52 Hgb 11.7 L Hct 35 Plt Count 172 MPV 9.3 INR (Anticoag Therapy) 0.98 Sodium 138 Potassium 4.0 Chloride 104 Carbon Dioxide 28 Anion Gap 6 BUN 14 Creatinine 0.72 Est GFR ( Amer) 95.5 Est GFR (Non-Af Amer) 79.0 BUN/Creatinine Ratio 19.4 Glucose 127 H Calcium 8.8 Assessment: []s/p Left total knee arthroplasty POD #1 Plan: []PT/ OT WBAT LLE Coumadin with Lovenox bridge- 8mg today Possible discharge home tomorrow with VNS if doing well.
[2018-07-06] MEDS: Enoxaparin(*) 40 MG/0.4 ML SYR SUBCUT SCH (13:19)
[2018-07-06] MEDS: oxyCODONE TAB* 5 MG TAB PO PRN (17:16)
[2018-07-06 18:54] LABS: ABS Basophils 0 10^3/ul (0-0.2); ABS Eosinophils 0.1 10^3/ul (0-0.6); ABS Lymphocytes 1.6 10^3/ul (1.0-4.8); ABS Nucleated RBC 0 10^3/ul; Eosinophil % 0.6 % (0-6); Hematocrit 33 % (35-47); Lymphocyte % 18.1 % (25-47); Mean Corpuscular HGB Conc 33 g/dl (31-36); Mean Corpuscular Hemoglobin 31 pg (27-31); Mean Corpuscular Volume 92 fL (80-97); Mean Platelet Volume 9.3 um3 (7.4-10.4); Nucleated Red Blood Cells % 0; Platelet Count 177 10^3/ul (150-450); Red Cell Distribution Width 14 % (10.5-15); White Blood Count 8.6 10^3/ul (3.5-10.8)
[2018-07-06 19:09] LABS: EGFR Non-African American 66.1 (>60)
--- NOTE | 2018-07-06 19:45 | PN ---
Hospitalist Progress Note Date of Service: 07/06/18 Rapid response called around 6:35 pm on Mrs Rowe after she developed dizziness and lightheadedness while trying to ambulate and use the bathroom. she became dizzy, and lightheaded. she was immediately placed in reverse trendelenburg and BP was noted to be in mid 80's Systollic. her bed side monitor revealed Sinus rhythm, saturation 99% 2 liters. and Finger stick was in 120's. EKG noted normal sinus rhythm no ST or T wave changes to suggest ischemia. Stat labs ordered (CBC, BMP, Mg, Trop)! result pending. Placed on tele for observations. signed out the case to the incoming band director team to follow up labs and discuss case with ortho pending results
[2018-07-06] MEDS ORDERED: NS 0.9% 1000 ML* 1,000 ML IV SCH (20:00)
--- NOTE | 2018-07-07 02:21 | CONS ---
CC: Carmen Odell NP, [facility]; Dr. Yen * CONSULTATION REPORT: DATE OF CONSULT: 07/06/18 PRIMARY CARE PROVIDER: Carmen Odell NP REQUESTING PHYSICIAN IN CONSULT: Dr. Yen. MY ATTENDING PHYSICIAN WHILE IN THE HOSPITAL: Dr. Tanya Hess (report dictated by Magdi Matamoros NP) REASON FOR MEDICAL CONSULT: Evaluation for hypotension. HISTORY OF PRESENT ILLNESS: Ms. Rowe is a 77-year-old female patient that underwent total knee replacement yesterday with Dr. Yen. She carries a history of osteoarthritis, depression, and a history of migraine. She had been doing fairly well, recovering with the exception this evening, she had an episode where she was going to stand up, she was having a significant amount of pain in her right knee. She was feeling very dizzy and lightheaded. She fell back into her chair. She was complaining of feeling really dizzy, she said she held her head down tucked in front of her. She felt like she was going to faint. She felt nauseated. She denied having any chest pain or shortness of breath. Nursing staff was in there, they were trying to get her to go to the commode to use the bathroom and they checked her blood pressure and it was noted at 60s/40s and a CAT call was called and Dr. Dennison responded. I refer you to his note. There, she denied again any chest pain prior to or after this event. She says that once the nurses put her in reverse Trendelenburg, she was feeling better. She said the dizziness had gone away when her head was down low. She again denied any chest pain or shortness of breath. She said that she did not faint to her knowledge. She remembered the entire event. She remembered when the CAT call was called and people coming into the room. She says that she has never experienced this before. She said that postoperatively, she had 1 episode of vomiting. This was actually after the event that happened tonight. She says that she really was not eating or drinking a lot yesterday. There was concern for because of the dizzy episode and hypotension and we were asked to evaluate in consult. PAST MEDICAL HISTORY: Significant for: 1. Osteoarthritis. 2. GERD. 3. Depression. 4. Migraines. PAST SURGICAL HISTORY: She has had a: 1. Right total knee replacement done yesterday. 2. Eye surgery. 3. Tonsillectomy. 4. Bladder sling. 5. Cataracts. 6. Septoplasty. MEDICATIONS: Home medications include: 1. Omeprazole 40 mg daily. 2. Multivitamin 1 tablet daily. ALLERGIES TO MEDICATIONS: Include no known drug allergies. FAMILY HISTORY: Mother had a history of dementia, father had a history of CHF, both in their late 80s. SOCIAL HISTORY: She does not smoke, she does not drink. Surrogate decision maker is her . REVIEW OF SYSTEMS: There is no documented fever. She denied having any significant weight change. There is no double vision. She denies having any ear discharge. There was no rhinorrhea. There was no sore throat. No thyroid enlargement. She denied having any chest pain. There is no orthopnea, there is no nocturnal dyspnea. She denies having any abdominal pain. She did admit to having some nausea, but there was no dysuria, no frequency. No seizure, there was no loss of consciousness, although she felt like she was going to faint, but she fortunately did not. Review of 14 systems completed, all others negative. PHYSICAL EXAM: Vital signs initially with the CAT call, blood pressure was 60/ 43, after Trendelenburg and fluids, blood pressure now is 106/77; pulse is 67; respirations are 20; O2 sats 100%; her temperature 98.1. General: At this time , Ms. Rowe is a 77-year-old female patient. She is sitting in the recliner. She does not appear to be in acute distress. She appears to be well nourished and well developed. HEENT: Head: Atraumatic, normocephalic. Eyes: EOMs are intact. Sclerae anicteric, not pale. Throat: Oral mucosa appears to be moist. No oropharyngeal erythema. Neck was supple. Lungs were clear to auscultation bilaterally. No wheezes, rales, or rhonchi. Heart: Sounds S1, S2. She had a regular rate and rhythm. Abdomen was soft. It was flat, nontender. Bowel sounds were present. Extremities: Pulses were 2+ throughout. Distal CSM checks were intact in the right lower extremity. She did have limited range of motion to the operative leg. She moves the upper extremities with 5/5 strength. Neurologically, she is awake. She is alert, she is oriented x3. She had no gross focal deficits. Her skin is grossly intact. DIAGNOSTIC STUDIES/LAB DATA: WBC of 8.6; RBC of 3.60; hemoglobin 11.0, previous hemoglobin this morning was 11.7; platelet count of 177. She had a sodium of 135, potassium was 4.2, chloride was 104, bicarb 26, BUN 15, creatinine 0.84, mag 2.0. Troponin 0. She did have an EKG obtained today with the CAT call, which did show a normal sinus rhythm, no ST elevations or T-wave inversions. The rate was 70. Old medical records were reviewed. ASSESSMENT AND PLAN: Ms. Rowe is a 77-year-old female patient, who had an episode of dizziness and hypotension. We were asked to evaluate in consult. My recommendations at this point are: 1. Status post right total knee. I will defer further management to Dr. Yen and her team. 2. Dizziness with hypotension. Again, this is probably secondary to orthostasis, possibly vasovagal in the setting of severe pain related to her trying to get up and use the bathroom and commode. She did respond after getting her position changed and putting her in reverse Trendelenburg. My plan would be to go ahead and continue fluids, check orthostatic blood pressures. In addition to this, I will also repeat her troponins, keep her on telemetry overnight, and to continue to follow her closely. I don't think there is any suspicion for arrhythmia, but again we will place her on telemetry. Her O2 saturation throughout the day have been in the upper 90s to 100% on room air. She is not tachycardic. Again, she did respond to the fluids and position change. So, I am assuming this is probably related to orthostatic hypotension and we will continue to follow her closely. 3. Osteoarthritis. Follow up with PCP. 4. Depression. Continue with supportive care. 5. History of gastroesophageal reflux disease. Continue PPI therapy. 6. DVT prophylaxis. Per the primary team. 7. Code status. Full code. 8. Fluids, electrolytes, and nutrition: Again, we will continue normal saline at 100 cc an hour for one more liter. She did receive a bolus. TIME SPENT: On the consult was approximately 60 minutes, greater than half the time was spent [id number] with the patient obtaining my history and physical, other half of the time was spent going over the plan of care with the patient and implementing the plan of care. I did discuss the plan of care with my attending, Dr. Hses; she is in agreement. MAGDI MATAMOROS NP [id number]/CPS #: [id number] JULIA
[2018-07-07] MEDS: oxyCODONE/Acetamin 5/325 MG* TAB PO PRN ×3 (05:39→17:50)
[2018-07-07 06:48] LABS: EGFR Non-African American 90.5 (>60)
[2018-07-07 06:55] LABS: INR 1.04 (0.77-1.02)
--- NOTE | 2018-07-07 07:16 | RAD ---
INDICATION: Syncope. COMPARISON: Comparison is made with a prior study from June 22, 2018. TECHNIQUE: A portable view of the chest was obtained. FINDINGS: Cardiac and mediastinal contours appear to be within normal limits. The lungs are hyperinflated and clear. No pleural effusion is seen. IMPRESSION: NO EVIDENCE FOR ACUTE FINDING. R1NF
[2018-07-07 07:53] LABS: ABS Basophils 0.1 10^3/ul (0-0.2); ABS Eosinophils 0.1 10^3/ul (0-0.6); ABS Lymphocytes 1.3 10^3/ul (1.0-4.8); ABS Monocytes 0.9 10^3/ul (0-0.8); ABS Neutrophils 6.6 10^3/ul (1.5-7.7); ABS Nucleated RBC 0 10^3/ul; Hematocrit 34 % (35-47); Hemoglobin 11.2 g/dl (12.0-16.0); Lymphocyte % 14.6 % (25-47); Mean Corpuscular HGB Conc 33 g/dl (31-36); Mean Corpuscular Hemoglobin 30 pg (27-31); Mean Corpuscular Volume 91 fL (80-97); Red Blood Count 3.71 10^6/ul (4.00-5.40); Red Cell Distribution Width 15 % (10.5-15)
[2018-07-07 07:54] LABS: Eosinophil % 0.7 % (0-6); Nucleated Red Blood Cells % 0.1
[2018-07-07] MEDS: Omeprazole CAP* 20 MG PO SCH (08:13)
[2018-07-07] MEDS: Vitamin THERAPEUTIC TAB PO SCH (08:14)
[2018-07-07] MEDS: Docusate CAP* 100 MG PO SCH ×2 (08:14→21:36)
[2018-07-07] MEDS: oxyCODONE TAB* 5 MG TAB PO PRN ×3 (08:14→21:36)
[2018-07-07] MEDS: Magnesium Hydroxide LIQ* 30 ML UDC PO SCH ×3 (08:18→21:39)
--- NOTE | 2018-07-07 08:29 | PN ---
Progress Note - Progress Note Date of Service: 07/07/18 SOAP: Subjective: Pt lying comfortably in bed sleeping. Easily aroused. No complaint of pain. No complaint of dizziness today. Denies CP, SOB. States would feel more comfortable going to STR. Vital Signs: Temp Pulse Resp BP Pulse Ox 99.0 F 78 16 106/51 99 07/07/18 06:55 07/07/18 06:55 07/07/18 08:14 07/07/18 06:55 07/07/18 06:55 Laboratory Last Values WBC 9.0 10^3/ul (3.5-10.8) 07/07/18 06:18 RBC 3.71 10^6/ul (4.00-5.40) L 07/07/18 06:18 Hgb 11.2 g/dl (12.0-16.0) L 07/07/18 06:18 Hct 34 % (35-47) L 07/07/18 06:18 MCV 91 fL (80-97) 07/07/18 06:18 MCH 30 pg (27-31) 07/07/18 06:18 MCHC 33 g/dl (31-36) 07/07/18 06:18 RDW 15 % (10.5-15) 07/07/18 06:18 Plt Count 10^3/ul (150-450) 07/07/18 06:18 MPV 9.3 um3 (7.4-10.4) 07/06/18 18:48 Neut % (Auto) 73.6 % (38-83) 07/07/18 06:18 Lymph % (Auto) 14.6 % (25-47) L 07/07/18 06:18 [place] % (Auto) 10.5 % (0-7) H 07/07/18 06:18 Eos % (Auto) 0.7 % (0-6) 07/07/18 06:18 Baso % (Auto) 0.6 % (0-2) 07/07/18 06:18 Absolute Neuts (auto) 6.6 10^3/ul (1.5-7.7) 07/07/18 06:18 Absolute Lymphs (auto) 1.3 10^3/ul (1.0-4.8) 07/07/18 06:18 Absolute Monos (auto) 0.9 10^3/ul (0-0.8) H 07/07/18 06:18 Absolute Eos (auto) 0.1 10^3/ul (0-0.6) 07/07/18 06:18 Absolute Basos (auto) 0.1 10^3/ul (0-0.2) 07/07/18 06:18 Absolute Nucleated RBC 0 10^3/ul 07/07/18 06:18 Nucleated RBC % 0.1 07/07/18 06:18 INR (Anticoag Therapy) 1.04 (0.77-1.02) H 07/07/18 06:18 Sodium 138 mmol/L (135-145) 07/07/18 06:18 Potassium 3.9 mmol/L (3.5-5.0) 07/07/18 06:18 Chloride 106 mmol/L (101-111) 07/07/18 06:18 Carbon Dioxide 26 mmol/L (22-32) 07/06/18 18:48 Anion Gap 5 mmol/L (2-11) 07/06/18 18:48 BUN 12 mg/dL (6-24) 07/07/18 06:18 Creatinine 0.64 mg/dL (0.51-0.95) 07/07/18 06:18 Est GFR ( Amer) 109.5 (>60) 07/07/18 06:18 Est GFR (Non-Af Amer) 90.5 (>60) 07/07/18 06:18 BUN/Creatinine Ratio 18.8 (8-20) 07/07/18 06:18 Glucose 106 mg/dL (70-100) H 07/07/18 06:18 POC Glucose (mg/dL) 119 mg/dL (70-100) H 07/06/18 18:35 Calcium 8.7 mg/dL (8.6-10.3) 07/07/18 06:18 Magnesium 2.0 mg/dL (1.9-2.7) 07/06/18 18:48 Troponin I 0.00 ng/mL (<0.04) 07/07/18 00:52 Objective: Dressing C/D/I. Calves soft, nontender. Sensation intact to light touch distally. 2+ DP pulses Assessment: 77 yo female s/p right TKA POD #2 Plan: OOB PT/OT Pain control DVT prophylaxis - coumadin with Lovenox bridging. 8mg coumadin today PMRU consult ordered
[2018-07-07] MEDS: Enoxaparin(*) 40 MG/0.4 ML SYR SUBCUT SCH (11:49)
[2018-07-07] MEDS ORDERED: Warfarin TAB(*) 4 MG PO ONE (17:00)
--- NOTE | 2018-07-07 17:52 | PN ---
Subjective Date of Service: 07/07/18 Interval History: Patient seen this afternoon, she was in bed. she reports uneventful day. She did participate with PT twice. She denies any chest pain or dizziness today. taking po well. Tele trend and history reviewed. no arrythmia. sinus with PVC 's rate averaging high 90's but no arrythmia. vitals notes. BP stable Past Medical History: Unchanged from Admission Objective Active Medications: Acetaminophen (Tylenol Tab*) 650 mg PO Q8H PRN PRN Reason: PAIN OR TEMPERATURE Bisacodyl (Dulcolax Supp*) [address] DAILY PRN PRN Reason: constipation Diphenhydramine HCl (Benadryl Iv*) 25 mg IV Q6H PRN PRN Reason: itching Docusate Sodium (Colace Cap*) 100 mg PO BID [facility] Last Admin: 07/07/18 08:14 Dose: 100 mg Enoxaparin Sodium (Lovenox(*)) 40 mg SUBCUT Q24H [facility] Last Admin: 07/07/18 11:49 Dose: 40 mg Sodium Chloride (Ns 0.9% 1000 Ml*) 1,000 mls @ 100 mls/hr IV PER RATE [facility] Last Admin: 07/06/18 20:11 Dose: 100 mls/hr Lactulose (Lactulose*) 30 ml PO Q6H PRN PRN Reason: constipation Magnesium Hydroxide (Milk Of Magnesia Liq*) 30 ml PO BID [facility] Last Admin: 07/07/18 08:18 Dose: Not Given Magnesium Hydroxide (Milk Of Magnesia Liq*) 30 ml PO Q6H PRN PRN Reason: constipation Morphine Sulfate (Morphine Inj ((Syringe))*) 2 mg IV Q2H PRN PRN Reason: PAIN - SEVERE Multivitamins (Theragran Tab*) 1 tab PO DAILY [facility] Last Admin: 07/07/18 08:14 Dose: 1 tab Omeprazole (Prilosec Cap*) 40 mg PO QAM@0730 [facility] Last Admin: 07/07/18 08:13 Dose: 40 mg Ondansetron HCl (Zofran Inj*) 4 mg IV Q6H PRN PRN Reason: nausea Oxycodone HCl (Roxycodone Tab*) 10 mg PO Q4H PRN PRN Reason: PAIN OR TEMPERATURE Last Admin: 07/06/18 11:30 Dose: 5 mg Oxycodone HCl (Roxycodone Tab*) 5 mg PO Q4H PRN PRN Reason: PAIN Last Admin: 07/07/18 14:42 Dose: 5 mg Oxycodone/Acetaminophen (Percocet 5/325 Tab*) 1 tab PO Q4H PRN PRN Reason: PAIN Last Admin: 07/07/18 11:50 Dose: 1 tab Oxycodone/Acetaminophen (Percocet 5/325 Tab*) 2 tab PO Q4H PRN PRN Reason: PAIN Last Admin: 07/05/18 22:48 Dose: 2 tab Vital Signs - 8 hr 07/07/18 07/07/18 07/07/18 10:55 11:36 11:50 Temperature 98.0 F Pulse Rate 74 Respiratory 16 16 16 Rate Blood Pressure 120/75 (mmHg) O2 Sat by Pulse 100 Oximetry 07/07/18 14:42 Temperature Pulse Rate Respiratory 16 Rate Blood Pressure (mmHg) O2 Sat by Pulse Oximetry Oxygen Devices in Use Now: None Appearance: awake, alert. no acute distress Eyes: No Scleral Icterus, PERRLA Ears/Nose/Mouth/Throat: NL Teeth, Lips, Gums, Mucous Membranes Moist Neck: NL Appearance and Movements; NL JVP, Trachea Midline Respiratory: Symmetrical Chest Expansion and Respiratory Effort, Clear to Auscultation Cardiovascular: NL Sounds; No Murmurs; No JVD, RRR, No Edema Abdominal: NL Sounds; No Tenderness; No Distention Extremities: No Edema Skin: No Rash or Ulcers Neurological: Alert and Oriented x 3, NL Muscle Strength and Tone Result Diagrams: 07/07/18 06:18 07/07/18 06:18 Assess/Plan/Problems-Billing Assessment: 77 y/o female seen in consultation for a transient hypotensive episode last night accompanied with dizziness, consistent with vasovagal near syncope. Currently on tele and orthostatic monitoring - Patient Problems (1) Hypotension Current Visit: Yes Status: Acute Comment: - occured on 07/06/18 evening with ambulation and changing position from sitting to standing accompanied with BP of mid 80's. - resolved with reverse trendelenburg - On tele since last night and the tele history reviewed. did not show any arrythmia. few PVCs' - I will recommed to keep on tele in am and if she remains uneventful may D/c tele in am and resume routine vitals. - Will sign off as she has had no further symptoms and will follow up prn (2) GERD (gastroesophageal reflux disease) Current Visit: Yes Status: Acute Code(s): K21.9 - GASTRO-ESOPHAGEAL REFLUX DISEASE WITHOUT ESOPHAGITIS SNOMED Code(s): 967316137 Comment: - omperazole (3) S/P total knee arthroplasty Current Visit: Yes Status: Acute Code(s): Z96.659 - PRESENCE OF UNSPECIFIED ARTIFICIAL KNEE JOINT SNOMED Code(s): 2701455860836 Comment: - Activity and DVT proph as per surgery - recommend to minimize narcotic as she may not tolerate it all at once and can precipitate dizziness.
[2018-07-08] MEDS: oxyCODONE/Acetamin 5/325 MG* TAB PO PRN ×2 (01:44→06:08)
[2018-07-08] MEDS: oxyCODONE TAB* 5 MG TAB PO PRN ×2 (03:41→08:42)
[2018-07-08 05:45] LABS: Hematocrit 32 % (35-47); Hemoglobin 10.5 g/dl (12.0-16.0); Mean Platelet Volume 9.5 um3 (7.4-10.4); Platelet Count 162 10^3/ul (150-450)
[2018-07-08 05:54] LABS: INR 1.12 (0.77-1.02)
[2018-07-08] MEDS: Docusate CAP* 100 MG PO SCH ×2 (08:42→20:15)
[2018-07-08] MEDS: Vitamin THERAPEUTIC TAB PO SCH (08:42)
[2018-07-08] MEDS: Magnesium Hydroxide LIQ* 30 ML UDC PO SCH ×2 (08:42→20:15)
[2018-07-08] MEDS: Omeprazole CAP* 20 MG PO SCH (08:46)
[2018-07-08] MEDS: Acetaminophen TAB* 325 MG PO PRN (12:26)
[2018-07-08] MEDS: Enoxaparin(*) 40 MG/0.4 ML SYR SUBCUT SCH (12:26)
--- NOTE | 2018-07-08 12:55 | PN ---
Subjective Date of Service: 07/08/18 Interval History: Patient seen this morning during PT, she was noted to be dyspneic and she expressed dizziness. BP noted to be 91/60. She did have her 2 tab of her pain medications about an hour ago. She was given ICED wet cloth and felt better. I did instruct patient to return to her room, nurse to monitor BP and I discussed with orthopedic to decrease her narcotic tablets. Tele noted for PVC and NSR in the 90's. she denies any chest pain Past Medical History: Unchanged from Admission Objective Active Medications: Acetaminophen (Tylenol Tab*) 650 mg PO Q8H PRN PRN Reason: PAIN OR TEMPERATURE Last Admin: 07/08/18 12:26 Dose: 650 mg Bisacodyl (Dulcolax Supp*) 10 mg [place] DAILY PRN PRN Reason: constipation Diphenhydramine HCl (Benadryl Iv*) 25 mg IV Q6H PRN PRN Reason: itching Docusate Sodium (Colace Cap*) 100 mg PO BID [facility] Last Admin: 07/08/18 08:42 Dose: Not Given Enoxaparin Sodium (Lovenox(*)) 40 mg SUBCUT Q24H [facility] Last Admin: 07/08/18 12:26 Dose: 40 mg Lactulose (Lactulose*) 30 ml PO Q6H PRN PRN Reason: constipation Magnesium Hydroxide (Milk Of Magnesia Liq*) 30 ml PO BID [facility] Last Admin: 07/08/18 08:42 Dose: Not Given Magnesium Hydroxide (Milk Of Magnesia Liq*) 30 ml PO Q6H PRN PRN Reason: constipation Multivitamins (Theragran Tab*) 1 tab PO DAILY [facility] Last Admin: 07/08/18 08:42 Dose: 1 tab Omeprazole (Prilosec Cap*) 40 mg PO QAM@0730 [facility] Last Admin: 07/08/18 08:46 Dose: 40 mg Ondansetron HCl (Zofran Inj*) 4 mg IV Q6H PRN PRN Reason: nausea Oxycodone/Acetaminophen (Percocet 5/325 Tab*) 1 tab PO Q4H PRN PRN Reason: PAIN Last Admin: 07/08/18 06:08 Dose: 1 tab Vital Signs - 8 hr 07/08/18 07/08/18 07/08/18 06:08 06:22 06:23 Temperature Pulse Rate Respiratory 18 18 Rate Blood Pressure 114/82 (mmHg) O2 Sat by Pulse Oximetry 07/08/18 07/08/18 07/08/18 07:50 08:00 08:37 Temperature 98.8 F Pulse Rate 77 Respiratory 14 16 16 Rate Blood Pressure 108/59 (mmHg) O2 Sat by Pulse 97 Oximetry 07/08/18 08:42 Temperature Pulse Rate Respiratory 16 Rate Blood Pressure (mmHg) O2 Sat by Pulse Oximetry Oxygen Devices in Use Now: None Appearance: no acute distress but complaning of dizziness Eyes: PERRLA Ears/Nose/Mouth/Throat: NL Teeth, Lips, Gums Neck: NL Appearance and Movements; NL JVP Respiratory: Symmetrical Chest Expansion and Respiratory Effort, Clear to Auscultation Cardiovascular: NL Sounds; No Murmurs; No JVD, RRR Result Diagrams: 07/08/18 05:18 07/07/18 06:18 Assess/Plan/Problems-Billing Assessment: 77 y/o female seen in consultation for a transient hypotensive episode last night accompanied with dizziness, consistent with vasovagal near syncope. Currently on tele and orthostatic monitoring - Patient Problems (1) Hypotension Current Visit: Yes Status: Acute Comment: - occured on 07/06/18 evening with ambulation and changing position from sitting to standing accompanied with BP of mid 80's. - resolved with reverse trendelenburg - On tele since last night and the tele history reviewed. did not show any arrythmia. few PVCs' - I will d/c tele. cut back her pain medications. monitor BP before ambulations for orthostatic (2) GERD (gastroesophageal reflux disease) Current Visit: Yes Status: Acute Code(s): K21.9 - GASTRO-ESOPHAGEAL REFLUX DISEASE WITHOUT ESOPHAGITIS SNOMED Code(s): 449270019 Comment: - omperazole (3) S/P total knee arthroplasty Current Visit: Yes Status: Acute Code(s): Z96.659 - PRESENCE OF UNSPECIFIED ARTIFICIAL KNEE JOINT SNOMED Code(s): 5376737605368 Comment: - Activity and DVT proph as per surgery - recommend to minimize narcotic as she may not tolerate it all at once and can precipitate dizziness. - Will sign off, stable from medical point of view. please call if needed
[2018-07-08] MEDS: traMADol TAB* 50 MG PO PRN ×2 (13:59→20:16)
--- NOTE | 2018-07-08 14:23 | PN ---
Progress Note - Progress Note Date of Service: 07/08/18 SOAP: Subjective: Pt seen and examined at bedside. Reports that she had another dizzy spell this AM. Per Hospitalist team, most likely orthostatic. Minimal complaint of pain. Denies CP, SOB, F/C. Vital Signs: Temp Pulse Resp BP Pulse Ox 98.8 F 77 18 108/59 97 07/08/18 07:50 07/08/18 07:50 07/08/18 13:59 07/08/18 07:50 07/08/18 07:50 Laboratory Last Values WBC 9.0 10^3/ul (3.5-10.8) 07/07/18 06:18 RBC 3.71 10^6/ul (4.00-5.40) L 07/07/18 06:18 Hgb 10.5 g/dl (12.0-16.0) L 07/08/18 05:18 Hct 32 % (35-47) L 07/08/18 05:18 MCV 91 fL (80-97) 07/07/18 06:18 MCH 30 pg (27-31) 07/07/18 06:18 MCHC 33 g/dl (31-36) 07/07/18 06:18 RDW 15 % (10.5-15) 07/07/18 06:18 Plt Count 162 10^3/ul (150-450) 07/08/18 05:18 MPV 9.5 um3 (7.4-10.4) 07/08/18 05:18 Neut % (Auto) 73.6 % (38-83) 07/07/18 06:18 Lymph % (Auto) 14.6 % (25-47) L 07/07/18 06:18 [place] % (Auto) 10.5 % (0-7) H 07/07/18 06:18 Eos % (Auto) 0.7 % (0-6) 07/07/18 06:18 Baso % (Auto) 0.6 % (0-2) 07/07/18 06:18 Absolute Neuts (auto) 6.6 10^3/ul (1.5-7.7) 07/07/18 06:18 Absolute Lymphs (auto) 1.3 10^3/ul (1.0-4.8) 07/07/18 06:18 Absolute Monos (auto) 0.9 10^3/ul (0-0.8) H 07/07/18 06:18 Absolute Eos (auto) 0.1 10^3/ul (0-0.6) 07/07/18 06:18 Absolute Basos (auto) 0.1 10^3/ul (0-0.2) 07/07/18 06:18 Absolute Nucleated RBC 0 10^3/ul 07/07/18 06:18 Nucleated RBC % 0.1 07/07/18 06:18 INR (Anticoag Therapy) 1.12 (0.77-1.02) H 07/08/18 05:18 Sodium 138 mmol/L (135-145) 07/07/18 06:18 Potassium 3.9 mmol/L (3.5-5.0) 07/07/18 06:18 Chloride 106 mmol/L (101-111) 07/07/18 06:18 Carbon Dioxide 26 mmol/L (22-32) 07/07/18 06:18 Anion Gap 6 mmol/L (2-11) 07/07/18 06:18 BUN 12 mg/dL (6-24) 07/07/18 06:18 Creatinine 0.64 mg/dL (0.51-0.95) 07/07/18 06:18 Est GFR ( Amer) 109.5 (>60) 07/07/18 06:18 Est GFR (Non-Af Amer) 90.5 (>60) 07/07/18 06:18 BUN/Creatinine Ratio 18.8 (8-20) 07/07/18 06:18 Glucose 106 mg/dL (70-100) H 07/07/18 06:18 POC Glucose (mg/dL) 119 mg/dL (70-100) H 07/06/18 18:35 Calcium 8.7 mg/dL (8.6-10.3) 07/07/18 06:18 Magnesium 2.0 mg/dL (1.9-2.7) 07/06/18 18:48 Troponin I 0.00 ng/mL (<0.04) 07/07/18 00:52 Objective: Dressing changed, incision C/D/I. Calves soft, nontender. No edema. Sensation intact to light touch distally. 2+ DP pulses. Assessment: 77 yo female s/p right TKA POD #3 Plan: OOB PT/OT Pain Control DVT prophylaxis - Coumadin 8mg today Awaiting SNF
[2018-07-08] MEDS ORDERED: Warfarin TAB(*) 4 MG PO ONE (17:00)
[2018-07-09] MEDS: Acetaminophen TAB* 325 MG PO PRN ×2 (04:16→20:12)
[2018-07-09] MEDS: traMADol TAB* 50 MG PO PRN ×2 (05:30→17:57)
[2018-07-09 05:56] LABS: Hematocrit 31 % (35-47); Hemoglobin 10.2 g/dl (12.0-16.0); Mean Platelet Volume 9.2 um3 (7.4-10.4); Platelet Count 169 10^3/ul (150-450)
[2018-07-09 06:01] LABS: INR 1.34 (0.77-1.02)
[2018-07-09] MEDS: Docusate CAP* 100 MG PO SCH ×2 (09:00→20:12)
[2018-07-09] MEDS: Vitamin THERAPEUTIC TAB PO SCH (09:00)
[2018-07-09] MEDS: Omeprazole CAP* 20 MG PO SCH (09:00)
[2018-07-09] MEDS: Magnesium Hydroxide LIQ* 30 ML UDC PO SCH ×2 (09:01→20:00)
[2018-07-09] MEDS: oxyCODONE/Acetamin 5/325 MG* TAB PO PRN (10:17)
[2018-07-09] MEDS: Enoxaparin(*) 40 MG/0.4 ML SYR SUBCUT SCH (12:31)
--- NOTE | 2018-07-09 13:18 | PN ---
Progress Note - Progress Note Date of Service: 07/09/18 SOAP: Subjective: []Patient seen and examined OOB in chair. She is feeling better today and had improved mobility per PT. Denies CP, SOB, dizziness, nausea. leg numbness. Objective: []General: Well appearing, NAD RLE: Dressing changed, incision C/D/I. Sensation intact to light touch distally. 2+ DP pulses. DF/PF intact Calves supple and nontender without erythema, edema or palpable cords Assessment: 77 yo female s/p right TKA Plan: PT/OT WBAT Needs SNF, referrals out awaiting placement. PMRU unable to offer bed. Awaiting response from [facility] lovenox, Coumadin 8 mg today Vital Signs Temp 98.4 F 07/09/18 11:53 Pulse 69 07/09/18 11:53 Resp 16 07/09/18 12:33 BP 102/58 07/09/18 11:53 Pulse Ox 100 07/09/18 11:53 Intake & Output 07/08/18 07/09/18 07/09/18 18:59 06:59 18:59 Intake Total 720 270 570 Output Total 500 1300 800 Balance 220 -1030 -230 Intake: Oral 720 270 570 Output: Urine 500 1300 800 Laboratory Last Values WBC 9.0 10^3/ul (3.5-10.8) 07/07/18 06:18 RBC 3.71 10^6/ul (4.00-5.40) L 07/07/18 06:18 Hgb 10.2 g/dl (12.0-16.0) L 07/09/18 05:31 Hct 31 % (35-47) L 07/09/18 05:31 MCV 91 fL (80-97) 07/07/18 06:18 MCH 30 pg (27-31) 07/07/18 06:18 MCHC 33 g/dl (31-36) 07/07/18 06:18 RDW 15 % (10.5-15) 07/07/18 06:18 Plt Count 169 10^3/ul (150-450) 07/09/18 05:31 MPV 9.2 um3 (7.4-10.4) 07/09/18 05:31 Neut % (Auto) 73.6 % (38-83) 07/07/18 06:18 Lymph % (Auto) 14.6 % (25-47) L 07/07/18 06:18 [place] % (Auto) 10.5 % (0-7) H 07/07/18 06:18 Eos % (Auto) 0.7 % (0-6) 07/07/18 06:18 Baso % (Auto) 0.6 % (0-2) 07/07/18 06:18 Absolute Neuts (auto) 6.6 10^3/ul (1.5-7.7) 07/07/18 06:18 Absolute Lymphs (auto) 1.3 10^3/ul (1.0-4.8) 07/07/18 06:18 Absolute Monos (auto) 0.9 10^3/ul (0-0.8) H 07/07/18 06:18 Absolute Eos (auto) 0.1 10^3/ul (0-0.6) 07/07/18 06:18 Absolute Basos (auto) 0.1 10^3/ul (0-0.2) 07/07/18 06:18 Absolute Nucleated RBC 0 10^3/ul 07/07/18 06:18 Nucleated RBC % 0.1 07/07/18 06:18 INR (Anticoag Therapy) 1.34 (0.77-1.02) H 07/09/18 05:31 Sodium 138 mmol/L (135-145) 07/07/18 06:18 Potassium 3.9 mmol/L (3.5-5.0) 07/07/18 06:18 Chloride 106 mmol/L (101-111) 07/07/18 06:18 Carbon Dioxide 26 mmol/L (22-32) 07/07/18 06:18 Anion Gap 6 mmol/L (2-11) 07/07/18 06:18 BUN 12 mg/dL (6-24) 07/07/18 06:18 Creatinine 0.64 mg/dL (0.51-0.95) 07/07/18 06:18 Est GFR ( Amer) 109.5 (>60) 07/07/18 06:18 Est GFR (Non-Af Amer) 90.5 (>60) 07/07/18 06:18 BUN/Creatinine Ratio 18.8 (8-20) 07/07/18 06:18 Glucose 106 mg/dL (70-100) H 07/07/18 06:18 POC Glucose (mg/dL) 119 mg/dL (70-100) H 07/06/18 18:35 Calcium 8.7 mg/dL (8.6-10.3) 07/07/18 06:18 Magnesium 2.0 mg/dL (1.9-2.7) 07/06/18 18:48 Troponin I 0.00 ng/mL (<0.04) 07/07/18 00:52
[2018-07-09] MEDS ORDERED: Warfarin TAB(*) 4 MG PO ONE (18:00)
[2018-07-10] MEDS: traMADol TAB* 50 MG PO PRN ×2 (00:14→10:54)
[2018-07-10] MEDS: oxyCODONE/Acetamin 5/325 MG* TAB PO PRN ×2 (04:02→08:09)
[2018-07-10] MEDS: Acetaminophen TAB* 325 MG PO PRN (04:02)
[2018-07-10 06:50] LABS: Hematocrit 32 % (35-47); Hemoglobin 10.5 g/dl (12.0-16.0); Platelet Count 190 10^3/ul (150-450)
[2018-07-10 06:57] LABS: INR 1.82 (0.77-1.02)
[2018-07-10 08:02] VITALS: BP 118/56
[2018-07-10] MEDS: Docusate CAP* 100 MG PO SCH (08:02)
[2018-07-10] MEDS: Vitamin THERAPEUTIC TAB PO SCH (08:02)
[2018-07-10] MEDS: Omeprazole CAP* 20 MG PO SCH (08:03)
[2018-07-10] MEDS: Magnesium Hydroxide LIQ* 30 ML UDC PO SCH (08:07)
--- NOTE | 2018-07-10 08:41 | PN ---
Progress Note - Progress Note Date of Service: 07/10/18 SOAP: Subjective: []Patient seen and examined OOB in chair. She is feeling well today and ready for discharge to [facility]. Denies chest pain, shortness of breath, dizziness , nausea or leg numbness. Objective: [] General: Well appearing, NAD RLE: Dressing changed, incision C/D/I. Sensation intact to light touch distally. 2+ DP pulses. DF/PF intact Calves supple and nontender without erythema, edema or palpable cords Assessment: 77 yo female s/p right TKA Plan: PT/OT WBAT DC to [facility] today Does still need lovenox dose today, Coumadin 4 mg today. Vital Signs Temp 97.5 F 07/10/18 07:34 Pulse 63 07/10/18 07:34 Resp 16 07/10/18 08:09 BP 118/56 07/10/18 07:34 Pulse Ox 97 07/10/18 07:34 Intake & Output 07/09/18 07/10/18 07/10/18 18:59 06:59 18:59 Intake Total 970 480 360 Output Total 800 1250 Balance 170 -770 360 Intake: Oral 970 480 360 Output: Urine 800 1250 Other: Estimated Stool Amount Large Laboratory Last Values WBC 9.0 10^3/ul (3.5-10.8) 07/07/18 06:18 RBC 3.71 10^6/ul (4.00-5.40) L 07/07/18 06:18 Hgb 10.5 g/dl (12.0-16.0) L 07/10/18 06:30 Hct 32 % (35-47) L 07/10/18 06:30 MCV 91 fL (80-97) 07/07/18 06:18 MCH 30 pg (27-31) 07/07/18 06:18 MCHC 33 g/dl (31-36) 07/07/18 06:18 RDW 15 % (10.5-15) 07/07/18 06:18 Plt Count 190 10^3/ul (150-450) 07/10/18 06:30 MPV 9.0 um3 (7.4-10.4) 07/10/18 06:30 Neut % (Auto) 73.6 % (38-83) 07/07/18 06:18 Lymph % (Auto) 14.6 % (25-47) L 07/07/18 06:18 [place] % (Auto) 10.5 % (0-7) H 07/07/18 06:18 Eos % (Auto) 0.7 % (0-6) 07/07/18 06:18 Baso % (Auto) 0.6 % (0-2) 07/07/18 06:18 Absolute Neuts (auto) 6.6 10^3/ul (1.5-7.7) 07/07/18 06:18 Absolute Lymphs (auto) 1.3 10^3/ul (1.0-4.8) 07/07/18 06:18 Absolute Monos (auto) 0.9 10^3/ul (0-0.8) H 07/07/18 06:18 Absolute Eos (auto) 0.1 10^3/ul (0-0.6) 07/07/18 06:18 Absolute Basos (auto) 0.1 10^3/ul (0-0.2) 07/07/18 06:18 Absolute Nucleated RBC 0 10^3/ul 07/07/18 06:18 Nucleated RBC % 0.1 07/07/18 06:18 INR (Anticoag Therapy) 1.82 (0.77-1.02) H 07/10/18 06:30 Sodium 138 mmol/L (135-145) 07/07/18 06:18 Potassium 3.9 mmol/L (3.5-5.0) 07/07/18 06:18 Chloride 106 mmol/L (101-111) 07/07/18 06:18 Carbon Dioxide 26 mmol/L (22-32) 07/07/18 06:18 Anion Gap 6 mmol/L (2-11) 07/07/18 06:18 BUN 12 mg/dL (6-24) 07/07/18 06:18 Creatinine 0.64 mg/dL (0.51-0.95) 07/07/18 06:18 Est GFR ( Amer) 109.5 (>60) 07/07/18 06:18 Est GFR (Non-Af Amer) 90.5 (>60) 07/07/18 06:18 BUN/Creatinine Ratio 18.8 (8-20) 07/07/18 06:18 Glucose 106 mg/dL (70-100) H 07/07/18 06:18 POC Glucose (mg/dL) 119 mg/dL (70-100) H 07/06/18 18:35 Calcium 8.7 mg/dL (8.6-10.3) 07/07/18 06:18 Magnesium 2.0 mg/dL (1.9-2.7) 07/06/18 18:48 Troponin I 0.00 ng/mL (<0.04) 07/07/18 00:52
--- NOTE | 2018-07-10 09:57 | DS ---
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 OPERATIVE PROCEDURE: Right total knee arthroplasty. HISTORY: Ms. Rowe is a 77-year-old female with years of increasingly severe right knee pain and valgus deformity. She failed conservative management and elected to undergo a right total knee arthroplasty. HOSPITAL COURSE: The patient was admitted to [facility] on . She underwent a right total knee arthroplasty without complication. On postop day 1, right knee dressing was clean, dry, and intact. Dorsiflexion and plantarflexion intact. Sensation intact distally. Hypotensive with lowest reading of 60/43 on one occasion, with systolics otherwise now lower than 80s and 90s. She was seen by our hospitalist service during her stay and blood pressure stable at discharge. On postop day 2, dressing was clean, dry, and intact. Neurovascularly intact distally. Hospitalist service recommend minimizing narcotics due to hypotension and precipitation of dizziness. On and 07/10/18, dressing was changed. Incision clean, dry, and intact. Sensation intact to light touch distally. 2+ dorsalis pedis pulses. Dorsiflexion and plantarflexion intact. The patient has a bed offered at [facility], which she has accepted on 07/10/18. She will be discharged today. Discharge vitals: Temperature 97.5, pulse 62, respiratory rate 16, blood pressure 118/56, pulse ox 97%. Discharge labs: Hemoglobin 10.5, hematocrit 32. INR 1.82. The patient is deemed to be medically and orthopedically stable for discharge to [facility]. DISCHARGE MEDICATIONS: 1. Omeprazole 20 mg capsule, 40 mg p.o. q.a.m. 2. Multivitamin 1 tab p.o. q.a.m. 3. Acetaminophen 650 mg p.o. q.8 hours p.r.n., max daily dose of 4000 mg from all sources of acetaminophen. 4. Docusate 100 mg p.o. b.i.d. p.r.n. constipation. 5. Percocet 5/325 mg 1 to 2 tabs every 4 to 6 hours as needed for pain, max daily dose of 10 but please restrict use as much as possible due to tendency towards low BP. 6. Warfarin 2 mg tabs 1 to 3 tabs daily, dose depends on INR. DISCHARGE INSTRUCTIONS: Weightbearing as tolerated. Daily dry sterile dressing change with gauze and [place] wrap. May shower postop day 3. Coumadin dosing 07/10/18, 4 mg; 07/11/18, 4 mg; 07/12/18, repeat INR for further dosing instructions. Percocet for pain control, please limit use as much as possible due to low BP ZAINAB SCHILLING [id number]/[facility] #: [id number] MTDD
[2018-07-10] MEDS: Enoxaparin(*) 40 MG/0.4 ML SYR SUBCUT SCH (10:54)
== END 2018-07-10 12:05 | DRG 470 ==
LOC: AA 10:49 → SSU 19:31
PROVIDERS: ADMIT Orthopaedic Surgery Adult Reconstructive Orthopaedic Surgery; ATTEND Orthopaedic Surgery Adult Reconstructive Orthopaedic Surgery
PROC: 0SRC0J9 Replacement of Right Knee Joint with Synthetic Substitute, Cemented, Open Approach (ICD-10-PCS; principal; 2018-07-05 13:00)
DX: M17.11 Unilateral primary osteoarthritis, right knee (principal); M21.061 Valgus deformity, not elsewhere classified, right knee; F32.9 Major depressive disorder, single episode, unspecified; M25.761 Osteophyte, right knee; K21.9 Gastro-esophageal reflux disease without esophagitis; G43.909 Migraine, unspecified, not intractable, without status migrainosus; I95.1 Orthostatic hypotension; Z79.899 Other long term (current) drug therapy; Z80.9 Family history of malignant neoplasm, unspecified; Z82.49 Family history of ischemic heart disease and other diseases of the circulatory system
CPT/HCPCS: 36415; 71045; 80048; 83735; 84484; 85014; 85018; 85025; 85049; 85610; 88305; 88311; 90686; A9270-GY; G8978-GP-CJ; G8979-GP-CI; G8987-GO-CL; G8988-GO-CI; J0690; J1100; J1650; J2250; J2405; J2704; J2795; J3010